=== PATIENT | female | born 1990 | race Caucasian/White ===

== ENCOUNTER 2016-04-23 13:47 | Emergency (ER) | payer SELFPAY ==
[~2016-04-23] VITALS: Ht 152.4 cm; Wt 75.0 kg
[2016-04-23 13:49] VITALS: BP 116/71; PULSE 96; RESP 14; TEMP 97.8; O2SAT 97
[2016-04-23] MEDS ORDERED: AMLO5TAB2 PO (14:21)
[2016-04-23] MEDS ORDERED: CYCL5TAB PO (14:21)
[2016-04-23] MEDS ORDERED: ASPI325T PO (14:21)
[2016-04-23] MEDS ORDERED: GABA600T PO (14:21)
--- NOTE | 2016-04-23 15:01 | PD ---
HPI Chief Complaint: Abnormal Results Time Seen by Provider: 14:12 Travel History International Travel<30 days: No Contact w/Intl Traveler<30days: No Traveled to known affect area: No History of Present Illness HPI The patient is a 26-year-old female who presents to the emergency department for color changes to left lower extremity. The patient states she fell asleep in [place], [place], in January 2016. The patient apparently was in the position that compromised blood flow to the left lower extremity and she developed compartment syndrome. The patient underwent fasciotomy at a hospital in [place] and was admitted for prolonged time. The patient was discharged home and returned to the [place], [place] in February. The patient has been wearing a stocking/sock over the affected area and his been undergoing physical therapy. The patient has also been seen by her primary physician and was supposed to follow-up with orthopedics, however, she states that her referral to see orthopedics was "messed up". The patient noticed the color changes to her left lower extremity whenever she put her legs over the side of the bed and called her physician in [place] who recommended she come to the emergency department immediately. She states the left lower extremity does get red, however, does not get cold, but turns warm. She denies any changes in numbness or tingling to the left lower extremity. She denies any drainage from her wounds and states his scars have been healing well. The patient does note mild foot drop the left lower extremity after the surgery. PFSH Past Medical History Cancer: No Diabetes: No Diminished Hearing: No Psychiatric: No Seizures: No Thyroid Disease: No Ulcer: No ?: Not LMP: 03/31/16 Past Surgical History Other Surgery: Yes (FACIOTOMY X 4 ) Social History Alcohol Use: No Tobacco Use: Yes (ELECTRONIC CIG) Substance Use: No Allergies-Medications (Allergen,Severity, Reaction): Coded Allergies: Penicillin (Verified Allergy, Severe, Hives, 04/23/16) Reported Meds & Prescriptions Reported Meds & Active Scripts Active Reported Flexeril (Cyclobenzaprine HCl) 5 Mg Tab 5 Mg PO TID Amlodipine (Amlodipine Besylate) 5 Mg Tab 5 Mg PO DAILY Aspirin 325 Mg Tab 325 Mg PO DAILY Gabapentin 600 Mg Tab 600 Mg PO TID Review of Systems Except as stated in HPI: all other systems reviewed are Neg General / Constitutional: No: Fever Cardiovascular: No: Chest Pain or Discomfort Respiratory: No: Shortness of Breath Gastrointestinal: No: Nausea, Vomiting Musculoskeletal: No: Pain Skin: Positive Other (as noted in the history of present illness) Neurologic: No: Paresthesia, Sensory Disturbance Physical Exam Narrative GENERAL: Awake, alert, pleasant 26-year-old female who appears her stated age and is in no acute respiratory distress. SKIN: Warm and dry. HEAD: Atraumatic. Normocephalic. EYES: No injection or drainage. ENT: No nasal bleeding or discharge. Mucous membranes pink and moist. NECK: Trachea midline. No JVD. CARDIOVASCULAR: Regular rate and rhythm. No murmur appreciated. RESPIRATORY: No accessory muscle use. Clear to auscultation. Breath sounds equal bilaterally. MUSCULOSKELETAL: The left lower extremity has a well-healed longitudinal scars on the medial thigh, lateral thigh, medial left tibia/fibular, and lateral left tibia/fibula. Doppler pulses were obtained from the dorsalis pedal pulse and posterior tibial pulse. When the patient puts her leg over the bed, dependent to gravity, she has a flushing appearance the left lower extremity with increased warmth. NEUROLOGICAL: Awake and alert. No obvious cranial nerve deficits. Sensation is symmetric on the medial, lateral, dorsal aspect the left foot. PSYCHIATRIC: Appropriate mood and affect; insight and judgment normal. Data Data Last Documented VS Vital Signs Date Time Temp Pulse Resp B/P Pulse Ox O2 Delivery O2 Flow Rate FiO2 04/23/16 13:49 97.8 96 14 116/71 97 Room Air Orders Creatine Kinase (Cpk) (04/23/16 14:25) Complete Blood Count With Diff (04/23/16 14:25) Comprehensive Metabolic Panel (04/23/16 14:25) Us Leg Venous Doppler (04/23/16 ) Labs Laboratory Tests Test 04/23/16 14:44 White Blood Count 6.7 TH/MM3 Red Blood Count 4.75 MIL/MM3 Hemoglobin 13.6 GM/DL Hematocrit 40.7 % Mean Corpuscular Volume 85.6 FL Mean Corpuscular Hemoglobin 28.7 PG Mean Corpuscular Hemoglobin 33.5 % Concent Red Cell Distribution Width 13.7 % Platelet Count 258 TH/MM3 Mean Platelet Volume 9.0 FL Neutrophils (%) (Auto) 50.8 % Lymphocytes (%) (Auto) 39.9 % Monocytes (%) (Auto) 5.1 % Eosinophils (%) (Auto) 3.5 % Basophils (%) (Auto) 0.7 % Neutrophils # (Auto) 3.4 TH/MM3 Lymphocytes # (Auto) 2.7 TH/MM3 Monocytes # (Auto) 0.3 TH/MM3 Eosinophils # (Auto) 0.2 TH/MM3 Basophils # (Auto) 0.0 TH/MM3 CBC Comment DIFF FINAL Differential Comment Sodium Level 141 MEQ/L Potassium Level 3.7 MEQ/L Chloride Level 104 MEQ/L Carbon Dioxide Level 27.0 MEQ/L Anion Gap 10 MEQ/L Blood Urea Nitrogen 13 MG/DL Creatinine 0.60 MG/DL Estimat Glomerular Filtration 123 ML/MIN Rate Random Glucose 67 MG/DL Calcium Level 9.4 MG/DL Total Bilirubin 0.3 MG/DL Aspartate Amino Transf 9 U/L (AST/SGOT) Alanine Aminotransferase 22 U/L (ALT/SGPT) Alkaline Phosphatase 79 U/L Total Creatine Kinase 47 U/L Total Protein 7.6 GM/DL Albumin 3.8 GM/DL MDM Medical Decision Making Medical Screen Exam Complete: Yes Emergency Medical Condition: Yes Medical Record Reviewed: Yes Interpretation(s) Last Impressions Lower Extremity Ultrasound 04/23/16 0000 Signed Impressions: Service Date/Time: Saturday, April 23, 2016 15:01 - CONCLUSION: There is normal compressibility of the deep venous system from the inguinal region to the proximal calf. No echogenic clot is seen in the lumen of the common femoral, femoral, popliteal, and posterior tibial veins. There is a normal response of the venous system to proximal and distal augmentation and respiration. CONCLUSION: Negative for deep venous thrombosis. Eusebio Cornelius MD FACR Laboratory Tests Test 04/23/16 14:44 White Blood Count 6.7 TH/MM3 Red Blood Count 4.75 MIL/MM3 Hemoglobin 13.6 GM/DL Hematocrit 40.7 % Mean Corpuscular Volume 85.6 FL Mean Corpuscular Hemoglobin 28.7 PG Mean Corpuscular Hemoglobin 33.5 % Concent Red Cell Distribution Width 13.7 % Platelet Count 258 TH/MM3 Mean Platelet Volume 9.0 FL Neutrophils (%) (Auto) 50.8 % Lymphocytes (%) (Auto) 39.9 % Monocytes (%) (Auto) 5.1 % Eosinophils (%) (Auto) 3.5 % Basophils (%) (Auto) 0.7 % Neutrophils # (Auto) 3.4 TH/MM3 Lymphocytes # (Auto) 2.7 TH/MM3 Monocytes # (Auto) 0.3 TH/MM3 Eosinophils # (Auto) 0.2 TH/MM3 Basophils # (Auto) 0.0 TH/MM3 CBC Comment DIFF FINAL Differential Comment Sodium Level 141 MEQ/L Potassium Level 3.7 MEQ/L Chloride Level 104 MEQ/L Carbon Dioxide Level 27.0 MEQ/L Anion Gap 10 MEQ/L Blood Urea Nitrogen 13 MG/DL Creatinine 0.60 MG/DL Estimat Glomerular Filtration 123 ML/MIN Rate Random Glucose 67 MG/DL Calcium Level 9.4 MG/DL Total Bilirubin 0.3 MG/DL Aspartate Amino Transf 9 U/L (AST/SGOT) Alanine Aminotransferase 22 U/L (ALT/SGPT) Alkaline Phosphatase 79 U/L Total Creatine Kinase 47 U/L Total Protein 7.6 GM/DL Albumin 3.8 GM/DL Differential Diagnosis Differential diagnosis includes autonomic dysfunction, arterial insufficiency, venous insufficiency, DVT. Narrative Course The patient has great Doppler pulses to the posterior tibialis pulse and dorsalis pedal pulse. The foot is warm, not cold, do not believe this is related to arterial insufficiency. There is no obvious edema, however, ultrasound was ordered to rule out DVT. It appears the patient has autonomic dysfunction with flushing upon depending gravity. I discussed the patient with the on-call vascular surgeon, Dr. Townsend, who agrees with the assessment and will see the patient on an outpatient basis. Ultrasound is negative for DVT. Labs are unremarkable. Patient is medically clear to be evaluated by vascular surgery and an outpatient basis. The patient will be provided a copy of her labs and ultrasound report at discharge. Diagnosis Primary Impression: Autonomic dysfunction Referrals: Wojciech Townsend V. DO call for appointment Patient Instructions: General Instructions Additional Instructions: Follow-up with vascular surgery and an outpatient basis. Wear compression stockings to the left lower extremity. Med/Other Pt SpecificInfo: No Change to Meds Disposition: 01 DISCHARGE HOME Condition: Stable Jelani Conde MD Apr 23, 2016 15:01
[2016-04-23 15:03] LABS: AUTOMATED NEUTROPHIL # 3.4 TH/MM3 (1.8-7.7); BASOPHIL % 0.7 % (0.0-2.0); EOSINOPHIL # 0.2 TH/MM3 (0-0.4); EOSINOPHIL % 3.5 % (0.0-4.0); HEMATOCRIT 40.7 % (35.0-46.0); HEMO FLAGS DIFF FINAL; LYMPH % 39.9 % (9.0-44.0); LYMPHOCYTE # 2.7 TH/MM3 (1.0-4.8); MEAN CELL VOLUME 85.6 FL (80.0-100.0); MEAN CORPUSCULAR HEMOGLOBIN 28.7 PG (27.0-34.0); MEAN CORPUSCULAR HGB CONC 33.5 % (32.0-36.0); MONO % 5.1 % (0.0-8.0); NEUT % 50.8 % (16.0-70.0); PLATELET COUNT 258 TH/MM3 (150-450); RED BLOOD COUNT 4.75 MIL/MM3 (4.00-5.30); RED CELL DISTRIBUTION WIDTH 13.7 % (11.6-17.2); WHITE BLOOD COUNT 6.7 TH/MM3 (4.0-11.0)
[2016-04-23 15:24] LABS: ALT (GPT) 22 U/L (10-53); ANION GAP 10 MEQ/L (5-15); AST (GOT) 9 U/L (15-37); BLOOD UREA NITROGEN 13 MG/DL (7-18); CHLORIDE 104 MEQ/L (98-107); GLOMERULAR FILTRATION RATE 123 ML/MIN (>89); POTASSIUM 3.7 MEQ/L (3.5-5.1); SODIUM (NA) 141 MEQ/L (136-145)
[2016-04-23 15:26] LABS: ALKALINE PHOSPHATASE 79 U/L (45-117); TOTAL BILIRUBIN ADULT 0.3 MG/DL (0.2-1.0)
--- NOTE | 2016-04-23 15:34 | RADRPT ---
EXAM DATE/TIME: 04/23/2016 15:01 [facility] COMPARISON: No previous studies available for comparison. INDICATIONS : Left leg redness and pain. MEDICAL HISTORY : Left leg redness. SURGICAL HISTORY : Fasciotomy for compartment syndrome 01/24. ENCOUNTER: Initial ACUITY: 1 week PAIN SCORE: 6/10 LOCATION: Left leg. TECHNIQUE: Venous ultrasound of the leg was performed from the inguinal ligament to the proximal calf. Real-time, color Doppler and spectral tracing, compression and augmentation techniques were us ed. FINDINGS: There is normal compressibility of the deep venous system from the inguinal region to the proximal ca lf. No echogenic clot is seen in the lumen of the common femoral, femoral, popliteal, and posterior tibial veins. There is a normal response of the venous system to proximal and distal augmentation an d respiration. CONCLUSION: There is normal compressibility of the deep venous system from the inguinal region to the proximal calf. No echogenic clot is seen in the lumen of the common femoral, femoral, popliteal , and posterior tibial veins. There is a normal response of the venous system to proximal and distal augmentation and respiration. CONCLUSION: Negative for deep venous thrombosis. Eusebio Cornelius MD FACR on April 23, 2016 at 15:32 Board Certified Radiologist. This report was verified electronically.
[2016-04-23 15:37] LABS: CREATINE KINASE 47 U/L (26-192)
== END 2016-04-23 16:18 | disposition home or self-care (01) ==
LOC: NEPE 13:47
DX: F45.8 Other somatoform disorders (principal); Z98.890 Other specified postprocedural states; Z09 Encounter for follow-up examination after completed treatment for conditions other than malignant neoplasm
CPT/HCPCS: 80053; 82550; 85025; 93971